=== PATIENT | male | born 1950 | race Caucasian/White ===

== ENCOUNTER 2017-07-23 01:47 | Emergency (ER) | payer MEDICARE, BC ==
[2017-07-23] MEDS ORDERED: MORPHINE SULFATE 5 MG/ML PFS IVP ONE (01:55)
[2017-07-23] MEDS ORDERED: KETOROLAC 30 MG/ML VIAL IVP ONE (01:55)
[2017-07-23] MEDS ORDERED: ONDANSETRON HCL IV 4 MG/2 ML VIAL IVP ONE (01:55)
[2017-07-23 01:56] LABS: URINE APPEARANCE CLEAR; URINE BILIRUBIN NEGATIVE (NEGATIVE); URINE BLOOD LARGE (NEGATIVE); URINE COLOR YELLOW; URINE GLUCOSE (UA) NEGATIVE (NEGATIVE); URINE KETONE 15 mg/dL (NEGATIVE); URINE LEUKOCYTE ESTERASE NEGATIVE (NEGATIVE); URINE NITRITE NEGATIVE (NEGATIVE)
[2017-07-23] MEDS ORDERED: 0.9 % SODIUM CHLORIDE 1000ML 1,000 ML IV SCH (02:00)
--- NOTE | 2017-07-23 02:01 | Emergency Department Record ---
History of Present Illness - General Chief complaint: Flank Pain Stated complaint: KIDNEY STONE Time Seen by Provider: 07/23/17 01:50 Source: Patient Mode of Arrival: Ambulatory Limitations: No limitations - History of Present Illness Initial comments: 67 yo male presents to ED for evaluation of worsening right sided flank pain symptoms that began approximately 16 hours ago. Patient reports that pain radiated to the right testicular region this morning, but is more concentrated in the flank this morning. Patient reports previous symptoms related to kidney stones, reports nausea/vomiting today but denies fevers, chills, or dysuria symptoms. Patient reports that he has seen Dr. Ornelas previously as well for his [place] symptoms. Complaint: Other (flank pain) Onset/Timin -: Days(s) Location: Right flank Radiation: Suprapubic Severity: Severe Quality: Aching Consistency: Constant Improves with: None Worsens with: None Reports: Denies other symptoms - Related Data Home Medications Medication Instructions Recorded Confirmed Last Taken Celecoxib [Celebrex] 200 mg PO DAILY 07/23/17 07/23/17 Unknown Cholecalciferol (Vitamin D3) 2,000 unit PO DAILY 07/23/17 07/23/17 Unknown [Vitamin D3] Diltiazem HCl [Diltiazem 24Hr ER] 360 mg PO DAILY 07/23/17 07/23/17 Unknown Fluoxetine HCl [Prozac] 20 mg PO DAILY 07/23/17 07/23/17 Unknown Metoprolol Succinate [Toprol Xl] 200 mg PO DAILY 07/23/17 07/23/17 Unknown Multivitamin [Multi-Vitamin Daily] 1 each PO DAILY 07/23/17 07/23/17 Unknown Omeprazole Magnesium [Prilosec Otc] 20 mg PO DAILY 07/23/17 07/23/17 Unknown Potassium Citrate [Urocit-K] 10 meq PO TID 07/23/17 07/23/17 Unknown Trazodone HCl 150 mg PO DAILY 07/23/17 07/23/17 Unknown Warfarin Sodium [Warfarin Sodium] 10 mg PO DAILY 07/23/17 07/23/17 Unknown Previous Rx's Medication Instructions Recorded Hydrocodone/Acetaminophen [Valdese 1 each PO Q6H PRN #15 tablet 07/23/17 5-325 Tablet] Tamsulosin HCl [Flomax] 0.4 mg PO DAILY #15 cap.er.24h 07/23/17 Allergies Allergy/AdvReac Type Severity Reaction Status Date / Time morphine Allergy VOMITING Verified 07/23/17 02:02 Review of Systems Constitutional: Denies: Chills, Fever, Malaise, Night sweats Eyes: Denies: Eye discharge, Eye pain ENT: Denies: Congestion, Ear pain, Epistaxis Respiratory: Denies: Cough, Dyspnea Cardiovascular: Denies: Chest pain, Dyspnea on exertion Endocrine: Denies: Fatigue, Heat or cold intolerance Gastrointestinal: Reports: Nausea, Vomiting. Denies: Abdominal pain Genitourinary: Denies: Incontinence, Retention, Testicular pain, Testicular mass Musculoskeletal: Reports: Back pain (right flank). Denies: Arthralgia, Gout, Joint swelling Skin: Denies: Bruising, Change in color Neurological: Denies: Abnormal gait Psychiatric: Denies: Anxiety Hematological/Lymphatic: Reports: Easy bleeding, Easy bruising. Denies: Anemia Physical Exam - General General Appearance: Alert, Oriented x3, Cooperative, Moderate distress Limitations: No limitations - Head Head exam: Atraumatic, Normocephalic, Normal inspection Head exam detail: negative: Abrasion, Contusion, Up's sign, General tenderness, Hematoma, Laceration - Eye Eye exam: Normal appearance. negative: Conjunctival injection, Periorbital swelling, Periorbital tenderness, Scleral icterus - ENT Ear exam: negative: Auricular hematoma, Auricular trauma Nasal Exam: negative: Active bleeding, Discharge, Dried blood, Foreign body Mouth exam: negative: Drooling, Laceration, Muffled voice, Tongue elevation - Neck Neck exam: Normal inspection. negative: Meningismus, Tenderness - Respiratory Respiratory exam: Normal lung sounds bilaterally. negative: Rales, Respiratory distress, Rhonchi, Stridor - Cardiovascular Cardiovascular Exam: Irregular rhythm - GI/Abdominal GI/Abdominal exam: Soft. negative: Rebound, Rigid, Tenderness - Rectal Rectal exam: Deferred - exam: Deferred - Extremities Extremities exam: Normal inspection. negative: Calf tenderness, Pedal edema, Tenderness - Back Back exam: Reports: CVA tenderness (R). Denies: CVA tenderness (L) - Neurological Neurological exam: Alert, Normal gait, Oriented X3 - Psychiatric Psychiatric exam: Normal affect, Normal mood - Skin Skin exam: Normal color. negative: Abrasion Type of lesion: negative: abrasion Course - Reevaluation(s) Reevaluation #1: 07/23/17 02:14 Labs reviewed, WBC 14.1, 84% neutrophils. INR 2.53. UA reviewed: 36-50 RBCs 0-2 WBCs Epithelial cells: None No bacteria Reevaluation #2: 07/23/17 02:47 CT Abdomen and Pelvis: (2) adjacent ureteral calculi right mid-ureter with moderate hydronephrosis and stranding right kidney Left renal cysts Patient was updated on all results, reports that he is pain-free and appears stable for discharge with instructions to call Dr. Ornelas tomorrow for follow -up appointment in 1-3 days as directed. Medical Decision Making - Lab Data Result diagrams: 07/23/17 02:00 07/23/17 02:00 Disposition Disposition: Discharge Clinical Impression: Kidney stone on right side Disposition: Home, Self-Care Condition: (2) Stable Instructions: Kidney Stones (ED) Additional Instructions: Return to ED if your symptoms worsen or if you have any concerns. Follow-up with Dr. Ornelas in 1-3 days as directed. Flomax and Valdese as directed. Prescriptions: Hydrocodone/Acetaminophen [Val[place]e 5-325 Tablet] 1 each PO Q6H PRN #15 tablet PRN Reason: Pain - Moderate (5-7) Tamsulosin HCl [Flomax] 0.4 mg PO DAILY #15 cap.er.24h Forms: Patient Portal Access Time of Disposition: 02:00 Quality - Quality Measures Quality Measures: N/A - Blood Pressure Screening Does Patient Have Any of the Following: Active Dx of HTN Blood Pressure Classification: Hypertensive Reading Systolic Measurement: 156 Diastolic Measurement: 107 Screening for High Blood Pressure: Patient Exclusion, Hx of HTN [G9744]
[2017-07-23 02:06] LABS: URINE RBC 36 - 50 (NONE SEEN)
[2017-07-23 02:07] LABS: URINE BACTERIA NONE SEEN; URINE EPITHELIAL CELLS NONE SEEN (FEW); URINE WBC 0 - 2 (0-2/hpf)
[2017-07-23 02:10] LABS: BASO % 0.2 % (0-6); EOS % 0.2 % (0-6); HEMATOCRIT 50.5 % (42.0-52.0); HEMOGLOBIN 16.7 gm/dl (14.0-18.0); LYMPH % 5.9 % (16-45); MEAN CELL VOLUME 87.1 fl (81-97); MEAN CORPUSCULAR HGB CONC 33.1 g/dl (32-36); MEAN PLATELET VOLUME 10.6 fl (7.4-10.4); MONO % 6.2 % (0-9); PLATELET COUNT 231 K/uL (130-400); RED CELL DISTRIBUTION WIDTH 14.7 % (11.5-14.5); WHITE BLOOD COUNT W/O DIFF 14.1 K/uL (4.2-12.2)
[2017-07-23 02:11] LABS: MEAN CORPUSCULAR HEMOGLOBIN 28.7 pg (27-33)
[2017-07-23 02:23] LABS: INR 2.53; PROTHROMBIN TIME (PATIENT) 27.6 SECONDS (9.5-12.1)
[2017-07-23 02:28] LABS: ALB/GLOB RATIO 2.1 (1.1-1.8); ALBUMIN 5.2 g/dL (4.0-5.0); ALKALINE PHOSPHATASE 72 U/L (40-129); ALT/SGPT 12 U/L (<41); AST/SGOT 13 U/L (10.0-50.0); BLOOD UREA NITROGEN 8 mg/dL (8-23); CREATININE 0.6 mg/dL (0.7-1.2); EST GLOMERULAR FILTRATION RATE > 60 mL/min; GLUCOSE,RANDOM 87 mg/dL (74-109); TOTAL PROTEIN 7.7 g/dL (6.6-8.7)
[2017-07-23] MEDS ORDERED: TAMSULOSIN HCL 0.4 MG CAP.ER.24H PO ONE (02:28)
[2017-07-23] MEDS ORDERED: HYDROCODONE/APAP 5/325MG TABLET PO ONE (02:46)
--- NOTE | 2017-07-24 07:49 | CT SCAN REPORT ---
EXAM: EMERGENCY CT OF THE ABDOMEN AND PELVIS WITHOUT CONTRAST HISTORY: RIGHT SIDED FLANK PAIN. TECHNIQUE: Axial CT scan of the abdomen and pelvis was performed without oral or IV contrast. A preliminary report was provided by [facility]. Comparison: None. FINDINGS: Apparent calcified gallstones within the dependent portion of the gallbladder. No additional findings to suggest acute cholecystitis currently. Small nonobstructing calculus lower pole right kidney and multiple nonobstructing calculi within the left kidney. There is no hydronephrosis or hydroureter on the left with no left ureteral calculus seen and no bladder calculus evident, however, there is prominent hydronephrosis on the right and hydroureter down to the approximate L4 level where there are two immediately adjacent ureteral calculi as seen in the coronal and sagittal reformatted images , with the lower of the two measuring approximately 3 cm in diameter and the upper of the two measuring about 4 mm in diameter. Distal to these two adjacent ureteral calculi the right ureter is no longer dilated with no additional more distal ureteral calculus seen on the right. The prostate is mildly enlarged measuring about 5.9 cm in transverse x 3.9 cm in AP diameter. Correlation with physical exam and serum PSA is suggested. There are some prostate calcifications as well. There is a large low attenuation mass arising from the lower pole of the left kidney measuring about 9.3 cm in size. This is incompletely evaluated without IV contrast although has a noncontrast CT of 11 consistent with a cyst and is presumably a large left renal cyst. This could be confirmed with a renal ultrasound if not previously documented. There is an approximately 2.3 cm low attenuation mass in the left adrenal which is also incompletely evaluated without IV contrast although has a relatively low density of 7 and is probably a lipid rich adenoma. This could be confirmed with follow-up MRI of the abdomen if clinically desired. Evaluation of the bowel and viscera is somewhat limited without oral or IV contrast. Given this limitation, no definite hepatic, splenic, right adrenal, pancreatic, or right renal mass identified. There is minor diverticulosis in the left side of the colon, but no diverticulitis evident. No appendicitis is seen. No free intraperitoneal air or free intraperitoneal fluid identified. Prominent facet joint arthropathy in the lower lumbar spine and advanced degenerative disk disease at the lumbosacral interspace. Prominent spurring particularly in the lower thoracic spine, but also within the lumbar spine. IMPRESSION: 1. A COUPLE ADJACENT RIGHT MID URETERAL CALCULI CAUSING OBSTRUCTION OF THE URINARY TRACT ABOVE THIS ON THE RIGHT. 2. ADDITIONAL CURRENTLY NONOBSTRUCTING BILATERAL INTRARENAL CALCULI. 3. CHOLELITHIASIS. 4. 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 THESE ARE INCOMPLETELY EVALUATED WITHOUT IV CONTRAST. 5. DEGENERATIVE CHANGES IN THE THORACIC AND LUMBAR SPINE. 6. ENLARGED PROSTATE CONTAINING SOME CALCIFICATION. 7. MINOR DIVERTICULOSIS LEFT SIDE OF THE COLON WITH NO DIVERTICULITIS EVIDENT. JOB NUMBER: [id number] [facility]
== END 2017-07-23 02:55 | disposition home or self-care (01) ==
LOC: ER 01:47
DX: N13.2 Hydronephrosis with renal and ureteral calculous obstruction (principal); R11.2 Nausea with vomiting, unspecified; Z87.442 Personal history of urinary calculi
CPT/HCPCS: 99284 ×2; 96374; 96375; 85610; 80053; 81001; 85027; 74176; J1885; J2405; J2270; J7030